=== PATIENT | male | born 1970 | race Caucasian/White ===

== ENCOUNTER 2018-02-09 10:15 | Emergency (ER) | payer OTHER ==
[2018-02-09 10:22] VITALS: BP 143/83; PULSE 81; RESP 18; TEMP 99.5
[2018-02-09] MEDS ORDERED: ACET/COD 300 MG/30 MG STARTER PACK 6 TAB BTL PO STA (10:47)
--- NOTE | 2018-02-09 10:50 | ED ---
ENT HPI - General Chief complaint: Dental/Oral Stated complaint: Dental pain Time Seen by Provider: 02/09/18 10:27 Source: patient Mode of arrival: ambulatory - History of Present Illness Initial comments: 37-year-old male who denies past medical history presenting today for chief complaint of dental pain. Patient states he's had right upper dental pain for weeks, he states his poor dentition was told he needed most of his upper teeth extracted. Patient states he has an appointment in the next 1-2 weeks with his dentist. Patient denies any fever, chills, general malaise, swelling under the tongue or swelling of the face, neck. Patient denies any trismus. Upon arrival patient appears well, no signs of acute distress. Vital signs within acceptable limits. Remainder of ROS negative, patient denies any recent shortness of breath, chest pain, back pain, abdominal pain, nausea or vomiting, numbness or tingling, dysuria or hematuria, constipation or diarrhea, headaches or visual changes, or any other complaints. - Related Data Previous Rx's Medication Instructions Recorded Naproxen 500 mg PO Q12HR 14 Days tab 03/26/15 Clindamycin [Cleocin] 450 mg PO Q6H 7 Days #63 capsule 02/09/18 Allergies Allergy/AdvReac Type Severity Reaction Status Date / Time ampicillin Allergy Rash/Hives Verified 03/26/15 11:41 Penicillins Allergy Rash/Hives Verified 03/26/15 11:41 Review of Systems ROS Statement: Those systems with pertinent positive or pertinent negative responses have been documented in the HPI. ROS Other: All systems not noted in ROS Statement are negative. Past Medical History Past Medical History: Myocardial Infarction ([place]) Additional Past Medical History / Comment(s): mi History of Any Multi-Drug Resistant Organisms: None Reported Past Surgical History: No Surgical Hx Reported Past Psychological History: No Psychological Hx Reported Smoking Status: Current every day smoker Past Alcohol Use History: None Reported Past Drug Use History: None Reported General Exam - General Exam Comments Initial Comments: General: The patient is awake and alert, in no distress, and does not appear acutely ill. Eye: +3 mm pupils are equal, round and reactive to light, extra-ocular movements are intact. No nystagmus. There is normal conjunctiva bilaterally. No signs of icterus. Ears, nose, mouth and throat: There are moist mucous membranes and no oral lesions. Patient has overall poor dentition, multiple caries and missing teeth. Tooth #14, is no area of adjacent gingival swelling or palpable abscess. There is tenderness to percussion of the tooth. No swelling below the tongue, swelling below the angle of the mandible. No facial swelling. Neck: The neck is supple, there is no tenderness or JVD. No anterior cervical lymph adenopathy. Cardiovascular: There is a regular rate and rhythm. No murmur, rub or gallop is appreciated. Respiratory: Lungs are clear to auscultation, respirations are non-labored, breath sounds are equal. No wheezes, stridor, rales, or rhonchi. No signs of respiratory distress. Musculoskeletal: Normal ROM, no tenderness. Strength 5/5. Sensation intact. Radial pulses equal bilaterally 2+. Neurological: A&O x 3. CN II-XII intact, There are no obvious motor or sensory deficits. Coordination appears grossly intact. Speech is normal. Skin: Skin is warm and dry and no rashes or lesions are noted. Psychiatric: Cooperative, appropriate mood & affect, normal judgment. Course Vital Signs 02/09/18 10:19 Temperature 99.5 F Pulse Rate 81 Respiratory 18 Rate Blood Pressure 143/83 O2 Sat by Pulse 96 Oximetry Medical Decision Making - Medical Decision Making Physical exam concerning for possible periapical abscess. Patient has overall poor dentition. No complaints of fever, chills or general malaise. No signs of systemic spread of infection. No signs of Ryan angina at this time. Patient appears well. Patient be started on clindamycin given penicillin ALLERGY. In addition patient was given a starter pack for Tylenol 3 for pain management. I discussed all the risks involved with Tylenol No. 3 including infection and . I discussed proper use of medication prior to discharge patient verbalized understanding of use of towel 3 as well as all discharge instructions. Patient is to follow-up in the next week for tooth extraction. Patient verbalized understanding this time we do feel patient is stable for discharge with dentist or oral surgery follow-up. I discussed case Dr. Parrish who agrees with impression and plan. Patient was discharged, appearing well. Denies questions at this time. Disposition Clinical Impression: Pain, dental Disposition: HOME SELF-CARE Condition: Good Instructions: Dental Abscess (ED) Additional Instructions: Please use medication as discussed, no operating machinery, working, driving, taking alcohol or using other medications such as Xanax for opioids with her while taking Tylenol 3. Please follow-up with dentist as scheduled for extraction. Please return to emergency room if the symptoms increase or worsen or for any other concerns. Prescriptions: Clindamycin [Cleocin] 450 mg PO Q6H 7 Days #63 capsule Is patient prescribed a controlled substance at d/c from ED?: No Referrals: None,Stated [Primary Care Provider] - 1-2 days [facility] Dalia murphy [NON-STAFF] - 1-2 days Siva Bauman DDS [STAFF PHYSICIAN] - 1-2 days Time of Disposition: 10:50
== END 2018-02-09 11:18 | disposition home or self-care (01) ==
LOC: EC 10:15
DX: K08.89 Other specified disorders of teeth and supporting structures (principal); I25.2 Old myocardial infarction; F17.200 Nicotine dependence, unspecified, uncomplicated; Z88.0 Allergy status to penicillin; Z88.1 Allergy status to other antibiotic agents
CPT/HCPCS: 99283

== ENCOUNTER 2018-03-30 13:13 | Emergency (ER) | payer OTHER ==
[2018-03-30 13:26] VITALS: RESP 18; TEMP 98.1
--- NOTE | 2018-03-30 14:44 | ED ---
General Adult HPI - General Chief complaint: Skin/Abscess/Foreign Body Stated complaint: Facial infection Time Seen by Provider: 03/30/18 13:35 Source: patient, RN notes reviewed Mode of arrival: ambulatory Limitations: no limitations - History of Present Illness Initial comments: 47-year-old male presents to the emergency department for right facial lesion times one year. Patient states this has been a black lesion that has been consistent for about a year. 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 Patient did see a primary care provider who referred him to a hearing specialist but they did not take his insurance. Patient did not see a hearing specialist. Patient states that yesterday green pus started to come from this. He is currently taking clindamycin for tooth infections. He states the side of his face has started to hurt as well. He denies fevers or chills. Patient has no other complaints at this time including shortness of breath, chest pain, abdominal pain, nausea or vomiting, headache, or visual changes. - Related Data Previous Rx's Medication Instructions Recorded Naproxen 500 mg PO Q12HR 14 Days tab 03/26/15 Clindamycin [Cleocin] 450 mg PO Q6H 7 Days #63 capsule 02/09/18 Cephalexin [Keflex] 500 mg PO Q6HR 7 Days cap 03/30/18 Allergies Allergy/AdvReac Type Severity Reaction Status Date / Time ampicillin Allergy Rash/Hives Verified 03/30/18 13:24 Penicillins Allergy Rash/Hives Verified 03/30/18 13:24 Review of Systems ROS Statement: Those systems with pertinent positive or pertinent negative responses have been documented in the HPI. ROS Other: All systems not noted in ROS Statement are negative. Past Medical History Past Medical History: Myocardial Infarction ([place]) Additional Past Medical History / Comment(s): mi History of Any Multi-Drug Resistant Organisms: None Reported Past Surgical History: No Surgical Hx Reported Past Psychological History: No Psychological Hx Reported Smoking Status: Current every day smoker Past Alcohol Use History: None Reported Past Drug Use History: None Reported General Exam Limitations: no limitations General appearance: alert, in no apparent distress Head exam: Present: atraumatic, normocephalic, normal inspection Eye exam: Present: normal appearance, PERRL, EOMI. Absent: scleral icterus, conjunctival injection, periorbital swelling ENT exam: Present: normal exam, normal oropharynx (Poor dentition noted, currently on clindamycin.), mucous membranes moist, TM's normal bilaterally, normal external ear exam, other (1 cm black lesion noted to right upper lip. No drainage noted at this time. Minimal erythema surrounding the area. No evidence of abscess when palpating.) Neck exam: Present: normal inspection, full ROM. Absent: tenderness, meningismus, lymphadenopathy Respiratory exam: Present: normal lung sounds bilaterally. Absent: respiratory distress, wheezes, rales, rhonchi, stridor Cardiovascular Exam: Present: regular rate, normal rhythm, normal heart sounds. Absent: systolic murmur, diastolic murmur, rubs, gallop, clicks Neurological exam: Present: alert, oriented X3, CN II-XII intact Psychiatric exam: Present: normal affect, normal mood Course Vital Signs 03/30/18 13:24 Temperature 98.1 F Pulse Rate 76 Respiratory 18 Rate Blood Pressure 128/91 O2 Sat by Pulse 97 Oximetry Medical Decision Making - Medical Decision Making 47 year old male presents for a black lesion times one year and it started draining yesterday and causing right-sided facial pain. On exam patient does have a 1 cm black lesion noted to the right upper lip. No drainage noted. No abscess noted. Minimal erythema surrounding the area. Patient not follow-up with hearing specialist as directed by his primary care. However, I discussed the necessity to have this biopsied as there is concern for melanoma or other skin cancer. Patient agrees to do this. I did give him referrals. I also directed him to call his insurance and asked which hearing specialist cover his insurance. I stressed the need to see an hearing specialist urgently. I also gave patient Keflex to cover for any superficial infection. Discussed returning if he has worsening symptoms. Disposition Clinical Impression: Skin lesion of face Disposition: HOME SELF-CARE Condition: Good Instructions (If sedation given, give patient instructions): Cellulitis (ED) Additional Instructions: Please follow up with hearing specialist in the next 1-2 days or as soon as possible for biopsy of lesion. I did give you the phone numbers to dermalogists Dr. Artis and Dr. Degroot. However, you may also call your insurance card to see which dermatologists are covered by your insurance. Please take antibiotics as directed. Return here to the emergency department if you have any worsening symptoms. Prescriptions: Cephalexin [Keflex] 500 mg PO Q6HR 7 Days cap Is patient prescribed a controlled substance at d/c from ED?: No Referrals: Xiomara Trevino MD [REFERRING] - 1-2 days Ramu Artis MD [STAFF PHYSICIAN] - 1-2 days Rhett Artis MD [STAFF PHYSICIAN] - 1-2 days Felix Degroot MD [STAFF PHYSICIAN] - 1-2 days Time of Disposition: 14:39
[2018-03-30 15:05] VITALS: BP 130/78; PULSE 67
== END 2018-03-30 15:02 | disposition home or self-care (01) ==
LOC: EC 13:13
DX: L98.9 Disorder of the skin and subcutaneous tissue, unspecified (principal); F17.200 Nicotine dependence, unspecified, uncomplicated; Z88.0 Allergy status to penicillin; Z88.1 Allergy status to other antibiotic agents
CPT/HCPCS: 99283